=== PATIENT | male | born 1985 | race Caucasian/White ===

== ENCOUNTER 2024-01-28 13:10 | Outpatient (CLI) | payer MEDICAID, SELFPAY ==
[2024-01-28 22:40] LABS: Benzodiazepines Screen,Urine Negative ng/ml (<200)
[2024-01-28 22:42] LABS: Barbiturates Screen,Urine Negative ng/ml (<200)
[2024-01-28 22:43] LABS: Cannabinoid Screen,Urine Negative ng/ml (<50); Cocaine Screen,Urine Negative ng/ml (<300)
[2024-01-28 22:45] LABS: Opiate Screen,Urine Negative ng/ml (<300); Phencyclidine Screen,Urine Negative ng/ml (<25)
[2024-01-28 22:49] LABS: Amphetamine/Metha Screen,Urine Negative ng/ml (<1000)
[2024-01-28 22:52] LABS: Methadone Screen,Urine Negative ng/ml (<300)
== END 2024-01-28 23:59 ==
PROVIDERS: Visit Provider Nurse Practitioner Family
DX: F11.20 Opioid dependence, uncomplicated (principal)
CPT/HCPCS: 36415; 80307

== ENCOUNTER 2024-08-06 16:11 | Outpatient (CLI) | payer SELFPAY ==
[2024-08-12 13:53] LABS: 6-Acetylmorphine NEGATIVE; Barbiturates NEGATIVE; Benzodiazepines POSITIVE; Buprenorphine POSITIVE; Cocaine Metabolite NEATIVE ng/mL; Fentanyl NEGATIVE; Gabapentin NEGATIVE; Marijuana MTB (THC) NEGATIVE; Nitrites NEGATIVE; Opiates NEGATIVE; Phencyclidine NEGATIVE; Tapentadol NEGATIVE
[2024-08-12 13:54] LABS: Amphetamines NEGAITVE ng/mL; Carisoprodol NEGATIVE; Ethanol Biomarkers NEGATIVE; Methadone NEGATIVE; Propoxyphene NEGATIVE; Tramadol NEGATIVE
== END 2024-08-06 23:59 | disposition home or self-care (01) ==
PROVIDERS: Visit Provider Nurse Practitioner Family
DX: F11.20 Opioid dependence, uncomplicated (principal)
CPT/HCPCS: 80307

== ENCOUNTER 2024-09-01 10:37 | Outpatient (CLI) | payer MEDICAID, SELFPAY ==
[2024-10-27 15:23] LABS: Alpha-Hydroxyalprazolam > 917 ng/mg
[2024-10-27 15:25] LABS: Alprazolam 425 ng/mg
[2024-10-27 15:31] LABS: Buprenorphine 42 ng/mg; Norbuprenorphine 167 ng/mg
[2024-10-27 15:33] LABS: Nitrites NEGATIVE
[2024-10-27 15:34] LABS: Urine pH 6.7
[2024-10-27 15:35] LABS: Ethanol Biomarkers NEGATIVE
== END 2024-09-01 23:59 | disposition home or self-care (01) ==
PROVIDERS: Visit Provider Nurse Practitioner Family
DX: F11.20 Opioid dependence, uncomplicated (principal)
CPT/HCPCS: 80307

== ENCOUNTER 2024-09-22 11:22 | Outpatient (CLI) | payer MEDICAID, SELFPAY ==
[2024-10-27 15:49] LABS: Alpha-Hydroxyalprazolam > 833 ng/mg
[2024-10-27 15:50] LABS: Alprazolam 535 ng/mg
[2024-10-27 15:55] LABS: Nitrites NEGATIVE; Urine pH 6.3
== END 2024-09-22 23:59 | disposition home or self-care (01) ==
LOC: LAB 11:24
PROVIDERS: Visit Provider Nurse Practitioner Family
DX: F11.20 Opioid dependence, uncomplicated (principal)
CPT/HCPCS: 80307